=== PATIENT | male | born 1960 | race Caucasian/White ===

== ENCOUNTER → 2018-04-17 | Outpatient (CLI) | payer OTHER ==
--- NOTE | 2018-04-17 09:46 | RAD ---
CT of the paranasal sinuses without contrast, 04/17/2018: HISTORY: Chronic sinusitis, rhinitis Noncontrast scans were obtained with multiplanar reconstructions produced. There is mild lobulated mucosal thickening posterior laterally in the superior aspect of the right maxillary sinus. This process is of medium to high density demonstrating an internal CT number of 70 Hounsfield units. The appearance suggests chronic sinusitis or a polyp. No free fluid is evident in the paranasal sinuses. The ethmoid infundibulum of the ostiomeatal complex is patent bilaterally. No bony abnormality is detected. The orbital contents are unremarkable. IMPRESSION: 1. Mild focal mucosal thickening in the right maxillary sinus. 2. No evidence of acute paranasal sinusitis. Electronically signed by: Pool Ortiz MD (04/17/2018 9:42 AM) [facility]
== END | disposition home or self-care (01) ==
LOC: CT 08:50
PROVIDERS: ATTEND Nurse Practitioner Adult Health
DX: J32.9 Chronic sinusitis, unspecified (principal); J30.9 Allergic rhinitis, unspecified
CPT/HCPCS: 70486